=== PATIENT | female | born 1960 | race Caucasian/White ===

== ENCOUNTER 2020-12-31 17:50 | Observation (INO) ==
[2020-12-31 19:57] LABS: BASOPHILS # (AUTO) 0.1 X10^3/uL (0.0-0.1); BASOPHILS % (AUTO) 0.8 % (0.2-1.0); EOSINOPHILS # (AUTO) 0.2 x10^3/uL (0.0-0.2); EOSINOPHILS % (AUTO) 1.2 % (0.9-2.9); HEMATOCRIT 38.3 % (36.0-47.0); HEMOGLOBIN 12.8 g/dL (12.0-16.0); LYMPHOCYTES # (AUTO) 2.9 X10^3/uL (1.3-2.9); LYMPHOCYTES % (AUTO) 19.3 % (21.0-51.0); MEAN CORPUSCULAR HEMOGLOBIN 28.2 pg (27.0-34.0); MEAN CORPUSCULAR HGB CONC 33.3 g/dL (33.0-35.0); MEAN CORPUSCULAR VOLUME 84.7 fL (80.0-100.0); MEAN PLATELET VOLUME 8.3 fL (7.4-11.0); MONOCYTES # (AUTO) 1.2 x10^3/uL (0.3-0.8); NEUTROPHILS # (AUTO) 10.8 x10^3/uL (2.2-4.8); NEUTROPHILS % (AUTO) 70.7 % (42.0-75.0); PLATELET COUNT 366 X10^3/uL (150.0-450.0); RED BLOOD COUNT 4.52 X10^6/uL (3.5-5.4); RED CELL DISTRIBUTION WIDTH 13.8 % (11.6-16.5); WHITE BLOOD COUNT 15.2 X10^3/uL (3.6-10.0)
[2020-12-31 20:02] LABS: BILIRUBIN,URINE NEGATIVE (NEGATIVE); BLOOD/HEMOGLOBIN,URINE 2+ (NEGATIVE); GLUCOSE, URINE NEGATIVE (NEGATIVE); KETONES,URINE NEGATIVE (NEGATIVE); LEUKOCYTE ESTERASE ,URINE NEGATIVE (NEGATIVE); NITRITES,URINE NEGATIVE (NEGATIVE); PROTEIN,URINE NEGATIVE (NEGATIVE); UROBILINOGEN,URINE NORMAL (NORMAL)
[2020-12-31 20:05] LABS: LIPASE 115 Units/L (73-393)
[2020-12-31 20:07] LABS: AMYLASE 79 Units/L (25-115)
[2020-12-31 20:10] LABS: AMORPHOUS SEDIMENT,UR TRACE /HPF (NEGATIVE); APPEARANCE,URINE CLEAR (CLEAR); BACTERIA,URINE TRACE /HPF (NEGATIVE); COLOR,URINE YELLOW (YELLOW); SQUAMOUS EPITHELIAL CELL,UR RARE /HPF (NEGATIVE)
[2020-12-31 20:21] LABS: ALANINE AMINOTRANSFERASE 35 Units/L (12-78); ALKALINE PHOSPHATASE 66 Units/L (46-116); ASPARTATE AMINO TRANSFERASE 30 Units/L (15-37); BLOOD UREA NITROGEN 0 mg/dL (7-18); CALCIUM 9.5 mg/dL (8.5-10.1); CARBON DIOXIDE 28.3 mmol/L (21-32); CHLORIDE 105 mmol/L (98-107); CKMB % 0.9 % (<4); CREATINE KINASE 110 Units/L (26-192); CREATINE KINASE MB < 1.0 ng/mL (0-4.0); CREATININE 0.92 mg/dL (0.55-1.02); SODIUM 142 mmol/L (136-145); TROPONIN I < 0.02 ng/mL (0-1.5); eGFR NON BLACK RACES > 60 (>60)
--- NOTE | 2020-12-31 20:24 | DR.GENAD ---
HPI Time Seen Time Seen by Provider: 12/31/20 19:09 PCP Primary Care Physician: BULMARO Complaint/Symptoms Chief Complaint:: PT C/O VOMITING X 1 WEEK INTERMITTENTLY. PT ALSO C/O HEADACHE DESCRIBED A BAND LIKE PRESSURE AROUND HEAD. PT STATES THAT EARLIER THIS AFTERNOON TEMP WAS 102.8 COVID-19 Coronavirus risk:travel/contact w/high risk person: No Source History Provided: Patient Mode of Arrival Mode of Arrival: Ambulatory Timing Onset of Chief Complaint: 12/31/20 PMH PMH Past Medical History: Yes Past Medical History: GERD Past Surgical History: Yes Surgical History: , Cholecystectomy, Tonsillectomy and Lithotripsy Past Surgical History Comment: LAP BAND Family History History of Family Medical Conditions: Yes Family Medical History: Hypertension Social History Does patient currently use any type of tobacco product: No Have you used tobacco products in the last 12 months: No Type of Tobacco Use: None Does any household member use tobacco: No Alcohol Use: None Do you use any recreational Drugs:: No Lives With: Family Lives Where: Home Travel Risk Coronavirus risk:travel/contact w/high risk person: No Infectious screening In the last 2 months have you had wt loss of >10#?: NO Have you had fever, night sweats or hemotysis?: No Have you traveled outside the country in the last 6 months?: No Isolation: Standard PE Vital Signs Vitals: Temperature 100.0 F Pulse Rate 82 Respiratory Rate 22 Blood Pressure 172/70 O2 Sat by Pulse Oximetry 95 General Limitations: No Limitations General Appearance: Alert and In No Apparent Distress Head Head Exam: Normal Inspection, Atraumatic and Normocephalic Eyes Eye exam: Normal Appearance and EOMI ENT ENT Exam: Normal Exam Neck Neck Exam: Normal Inspection and Trachea Midline Chest Chest Inspection: Normal Inspection and Symmetric Chest Wall Rise Respiratory Respiratory Exam: Normal Lung Sounds Bilat Respiratory Exam: Bilateral: Clear to Auscultation Cardiovascular Cardiovascular Exam: Regular Rate, Normal Rhythm and Normal Heart Sounds Abdominal Exam Abdominal Exam: Normal Inspection, Normal Bowel Sounds, Soft and Tenderness Abdominal Tenderness: Epigastrium Extremities Extremities Exam: Normal Inspection Neurologic Neurological Exam: Alert and Oriented X3 Psychiatric Psychiatric Exam: Normal Affect and Normal Mood Skin Skin Exam: Warm, Dry and Intact COURSE Treatment Treatment: unremarkable ROR Labs Reviewed Laboratory Results Reviewed?: Yes Result Diagrams: 12/31/20 19:44 12/31/20 19:36 Laboratory: WBC 15.2 X10^3/uL (3.6-10.0) H 12/31/20 19:44 RBC 4.52 X10^6/uL (3.5-5.4) 12/31/20 19:44 Hgb 12.8 g/dL (12.0-16.0) 12/31/20 19:44 Hct 38.3 % (36.0-47.0) 12/31/20 19:44 MCV 84.7 fL (80.0-100.0) 12/31/20 19:44 MCH 28.2 pg (27.0-34.0) 12/31/20 19:44 MCHC 33.3 g/dL (33.0-35.0) 12/31/20 19:44 RDW 13.8 % (11.6-16.5) 12/31/20 19:44 Plt Count 366 X10^3/uL (150.0-450.0) 12/31/20 19:44 MPV 8.3 fL (7.4-11.0) 12/31/20 19:44 Neut % (Auto) 70.7 % (42.0-75.0) 12/31/20 19:44 Lymph % (Auto) 19.3 % (21.0-51.0) L 12/31/20 19:44 [place] % (Auto) 8.0 % (0.0-13.0) 12/31/20 19:44 Eos % (Auto) 1.2 % (0.9-2.9) 12/31/20 19:44 Baso % (Auto) 0.8 % (0.2-1.0) 12/31/20 19:44 Neut # (Auto) 10.8 x10^3/uL (2.2-4.8) H 12/31/20 19:44 Lymph # (Auto) 2.9 X10^3/uL (1.3-2.9) 12/31/20 19:44 [place] # (Auto) 1.2 x10^3/uL (0.3-0.8) H 12/31/20 19:44 Eos # (Auto) 0.2 x10^3/uL (0.0-0.2) 12/31/20 19:44 Baso # (Auto) 0.1 X10^3/uL (0.0-0.1) 12/31/20 19:44 Absolute Nucleated RBC 0.0 /100WBC 12/31/20 19:44 Sodium 142 mmol/L (136-145) 12/31/20 19:36 Corrected Sodium TNP 12/31/20 19:36 Potassium 3.8 mmol/L (3.5-5.1) 12/31/20 19:36 Chloride 105 mmol/L (98-107) 12/31/20 19:36 Carbon Dioxide 28.3 mmol/L (21-32) 12/31/20 19:36 BUN 0 mg/dL (7-18) L 12/31/20 19:36 Creatinine 0.92 mg/dL (0.55-1.02) 12/31/20 19:36 Est GFR (MDRD) Af Amer > 60 (>60) 12/31/20 19:36 Est GFR (MDRD) Non-Af > 60 (>60) 12/31/20 19:36 Glucose 93 mg/dL (65-99) 12/31/20 19:36 Calcium 9.5 mg/dL (8.5-10.1) 12/31/20 19:36 Corrected Calcium TNP 12/31/20 19:36 Total Bilirubin 0.60 mg/dL (0.2-1.0) 12/31/20 19:36 AST 30 Units/L (15-37) 12/31/20 19:36 ALT 35 Units/L (12-78) 12/31/20 19:36 Alkaline Phosphatase 66 Units/L (46-116) 12/31/20 19:36 Creatine Kinase 110 Units/L (26-192) 12/31/20 19:36 CK-MB (CK-2) < 1.0 ng/mL (0-4.0) 12/31/20 19:36 CK/CKMB % Calc 0.9 % (<4) 12/31/20 19:36 Troponin I < 0.02 ng/mL (0-1.5) 12/31/20 19:36 Total Protein 8.0 g/dL (6.4-8.2) 12/31/20 19:36 Albumin 3.6 g/dL (3.4-5.0) 12/31/20 19:36 Globulin 4.4 g/dL (2.5-4.5) 12/31/20 19:36 Albumin/Globulin Ratio 0.8 Ratio (1.1-2.1) L 12/31/20 19:36 Amylase 79 Units/L (25-115) 12/31/20 19:36 Lipase 115 Units/L (73-393) 12/31/20 19:36 Specimen Type Clean catch urine 12/31/20 19:30 Urine Color Yellow (YELLOW) 12/31/20 19:30 Urine Appearance Clear (CLEAR) 12/31/20 19:30 Urine pH 6.0 (5.0 - 8.0) 12/31/20 19:30 Ur Specific [place] 1.015 (1.000-1.030) 12/31/20 19:30 Urine Protein Negative (NEGATIVE) 12/31/20 19:30 Urine Glucose (UA) Negative (NEGATIVE) 12/31/20 19:30 Urine Ketones Negative (NEGATIVE) 12/31/20 19:30 Urine Occult Blood 2+ (NEGATIVE) 12/31/20 19:30 Urine Nitrite Negative (NEGATIVE) 12/31/20 19:30 Urine Bilirubin Negative (NEGATIVE) 12/31/20 19:30 Urine Urobilinogen Normal (NORMAL) 12/31/20 19:30 Ur Leukocyte Esterase Negative (NEGATIVE) 12/31/20 19:30 Urine RBC 3-5 /HPF (0-3) A 12/31/20 19:30 Urine WBC 0-2 /HPF (0-5) 12/31/20 19:30 Ur Squamous Epith Cells Rare /HPF (NEGATIVE) 12/31/20 19:30 Amorphous Sediment Trace /HPF (NEGATIVE) 12/31/20 19:30 Urine Bacteria Trace /HPF (NEGATIVE) 12/31/20 19:30 Ur Culture Indicated? No/not indicated 12/31/20 19:30 SARS CoV-2 RNA Rapid JANETTE Negative (NEGATIVE) 12/31/20 18:38 Opioid Opioid Risk Tool Age ([place] box if 16-45): No History of Preadolescent Sexual Abuse: No Total: 0 Total Score Risk Category: Low Risk Copyright: Wilhelm predicting aberrant behaviors Diagnosis Discharge Problem: Pneumonia Qualifiers: Pneumonia type: due to unspecified organism Laterality: right Lung location: middle lobe of lung Qualified Code(s): J18.9 - Pneumonia, unspecified organism
[2020-12-31 20:28] LABS: ALBUMIN 3.6 g/dL (3.4-5.0)
[2020-12-31] MEDS ORDERED: TUSSIONEX PENNKINETIC SUSP PO PRN (22:11)
[2020-12-31] MEDS ORDERED: NS 1/2 1000 ML IV 1,000 ML IV ONE (22:34)
[2020-12-31] MEDS ORDERED: LEVAQUIN PREMIX IV 750 MG 750 MG/150 ML BAG IV ONE (22:34)
[2020-12-31] MEDS: NS 1/2 1000 ML IV 1,000 ML IV SCH (22:43)
[2020-12-31] MEDS ORDERED: TYLENOL 325 MG TAB PO ONE (22:44)
[2020-12-31] MEDS: TYLENOL 325 MG TAB PO PRN (22:47)
[2020-12-31] MEDS ORDERED: SALINE 3% 15 ML NEB TX ONE (22:49)
[2020-12-31] MEDS ORDERED: LEVAQUIN PREMIX IV 750 MG 750 MG/150 ML BAG IV SCH (23:00)
--- NOTE | 2020-12-31 23:28 | RAD ---
PROCEDURE: Chest X-ray 1 View .HISTORY: PT C/O VOMITING X 1 WEEK INTERMITTENTLY. PT ALSO C/O HEADACHE DESCRIBED A BAND LIKE PRESSURE AROUND HEAD. PT STATES THAT EARLIER THIS AFTERNOON TEMP WAS 102.8 .TECHNIQUE: AP view .COMPARISON: None .TECHNICAL QUALITY: Satisfactory .FINDINGS:Normal size heart .Mediastinum and hilar regions show no masses or lymphadenopathy .Normal central vascularity .No pulmonary consolidation, masses, pleural fluid, or pneumothorax .No acute bony abnormality .IMPRESSION:No active cardiopulmonary disease .Electronically signed by: Daryn Chandra (Dec 31, 2020 23:26:45)
[2021-01-01] MEDS ORDERED: SALINE 3% 15 ML NEB TX NEB ONE (00:09)
[2021-01-01 00:42] VITALS: BMI 36.1
--- NOTE | 2021-01-01 06:16 | RAD ---
HISTORY: [Cough]. [Dyspnea].Single portable of the chest.Comparison: Chest radiograph dated January 01, 2020.Findings:The trachea is midline. The cardiac silhouette is borderline enlarged. There are increased [perihilar] interstitial opacities seen, suggesting [central bronchitis]. The lungs [are otherwise clear without focal infiltrate or effusion]. The bony thorax [is unremarkable].IMPRESSION:Radiographic findings suggesting a bronchitis/bronchiolitis.No lobar pneumonia or pleural effusion seen.Electronically signed by: SHANIQUE MATOS III (Jan 01, 2021 06:14:21)
[2021-01-01 06:58] LABS: BASOPHILS # (AUTO) 0.1 X10^3/uL (0.0-0.1); BASOPHILS % (AUTO) 0.8 % (0.2-1.0); EOSINOPHILS # (AUTO) 0.3 x10^3/uL (0.0-0.2); EOSINOPHILS % (AUTO) 3.4 % (0.9-2.9); HEMATOCRIT 35.9 % (36.0-47.0); HEMOGLOBIN 11.9 g/dL (12.0-16.0); LYMPHOCYTES # (AUTO) 1.8 X10^3/uL (1.3-2.9); MEAN CORPUSCULAR HEMOGLOBIN 28.3 pg (27.0-34.0); MEAN CORPUSCULAR HGB CONC 33.3 g/dL (33.0-35.0); MEAN CORPUSCULAR VOLUME 85.1 fL (80.0-100.0); MEAN PLATELET VOLUME 8.5 fL (7.4-11.0); MONOCYTES # (AUTO) 0.9 x10^3/uL (0.3-0.8); MONOCYTES % (AUTO) 9.5 % (0.0-13.0); NEUTROPHILS % (AUTO) 66.3 % (42.0-75.0); PLATELET COUNT 317 X10^3/uL (150.0-450.0); RED BLOOD COUNT 4.22 X10^6/uL (3.5-5.4); RED CELL DISTRIBUTION WIDTH 14.1 % (11.6-16.5)
[2021-01-01 07:16] LABS: ALANINE AMINOTRANSFERASE 33 Units/L (12-78); ALBUMIN 3.1 g/dL (3.4-5.0); ALKALINE PHOSPHATASE 56 Units/L (46-116); ASPARTATE AMINO TRANSFERASE 25 Units/L (15-37); BLOOD UREA NITROGEN 8 mg/dL (7-18); CALCIUM 8.8 mg/dL (8.5-10.1); CARBON DIOXIDE 28.6 mmol/L (21-32); CHLORIDE 107 mmol/L (98-107); COR CA(FOR HYPOALB) 9.5 mg/dL (8.5-10.1); CREATININE 0.94 mg/dL (0.55-1.02); SODIUM 144 mmol/L (136-145); eGFR NON BLACK RACES > 60 (>60)
[2021-01-01] MEDS: DUONEB 0.5 MG/3 MG (3 mL) NEB SCH ×4 (09:28→20:30)
[2021-01-01] MEDS: ROBITUSSIN DM PO SCH ×4 (09:41→21:05)
[2021-01-01] MEDS ORDERED: TORADOL 30 MG VIAL IVP PRN (09:47)
[2021-01-01] MEDS: TYLENOL 325 MG TAB PO PRN ×2 (09:49→21:04)
[2021-01-01] MEDS ORDERED: NS 1/2 1000 ML IV 1,000 ML IV ONE (10:03)
[2021-01-01] MEDS: NS 1/2 1000 ML IV 1,000 ML IV SCH (12:57)
--- NOTE | 2021-01-01 19:31 | DR.H&P ---
H&P - History & Physical for Day of: H&P Date: 12/31/20 - Chief Complaint Chief Complaint: COUGH, SOB, HEADACHE, NAUSEA/VOMITING - History of Present Illness History of Present Illness: IS A 60 YEAR OLD WHITE FEMALE WHO PRESENTED TO THE ED WITH REPORTS OF NON-PRODUCTIVE COUGH, SHORTNESS OF BREAHT, HEADACHE, AND VOMITING. PATIENT REPORTS A HISTORY OF ACID REFLUX AND LAP BAND AND SAYS THAT INTERMITTENT VOMITING IS NORMAL FOR HER. SHE ALSO REPORTS THAT SHE HAD A TEMPERATURE OF 102.8 TODAY. HEADACHE IS DESCRIBED PRESSURE, BAND-LIKE, AND IS LOCATED ALL AROUND THE HEAD, MORESO IN THE FRONTAL SINUS AREA. PAIN WAS RATED A 6/10 IN THE ED. HER SYMPTOMS STARTED ABOUT 1 WEEK PRIOR TO ARRIVAL. HER PMH INCLUDES: GERD, , CHOLECYSTECTMY, LAP BAND, TONSILLECTOMY, AND LITHOTRIPSY. ON ARRIVAL TO THE ED, VITALS WERE 100.0-82-22-95%-172/70. LABS WERE OBTAINED. WBC 15.2, OTHERWISE, UNREMARKABLE. CARDIAC ENZYMES WIHTIN NORMAL LIMITS. COVID-19 NEGATIVE. URINALYSIS IS UNREMARKABLE. BLOOD CULTURES WERE SET UP. WE OBTAINED A CHEST XRAY. IT REVEALED: Radiographic findings suggesting a bronchitis/bronchiolitis. No lobar pneumonia or pleural effusion seen. EKG REVEALED: SINUS RHYTHM WITH HR 64. WHILE IN THE ER, SHE WAS STARTED ON LEVAQUIN 750MG IV X 1. SHE WAS ADMITTED TO THE HOSPITAL FOR FURTHER EVALUATION AND TREATMENT OF ACUTE BRONCHITIS AND ACUTE SINUSITIS. SHE WAS STARTED ON 1/2NS AT 75 ML/HR, LEVAQUIN 750MG IV DAILY, DUONEBS QID, TUSSIONEX 5ML PO Q12H PRN, ROBITUSSIN DM 10ML PO QID, TORADOL 30MG IV Q6H PRN, ZYRTEC 10MG PO HS, FLONASE 2 SPRAYS TO EACH NOSTRIL HS, AND LOVENOX 40MG SC DAILY. OTHERWISE, WE PLAN TO FOLLOW UP WITH AM LABS AND CHEST XRAY AND CONTINUE TO MONITOR. TIME SPENT ON CLINICAL ASSESSMENT, REVIEWING LABS AND IMAGING, DECISION MAKING, AND DOCUMENTATION WAS GREATER THAN 75 MINUTES. - Past Medical History Past Medical History: GERD - Past Surgical History Surgical History: , Cholecystectomy, Tonsillectomy, Weight Loss Surgery, Lithotripsy - Family History Family Medical History: Hypertension - Social History Does patient currently use any type of tobacco product: No Have you used tobacco products in the last 12 months: No Type of Tobacco Use: None Does any household member use tobacco: No Alcohol Use: None Drug Use: None - Medications Home Medications: No Known Drug Allergies Allergy (Verified 12/31/20 18:21) CONTINUE taking the following medications cetirizine [Zyrtec] 10 mg PO DAILY 01/01/21 [History] diphenhydramine HCl [Benadryl] 25 mg PO HS 01/01/21 [History] - Review of Systems Constitutional: Fever Eyes: No Symptoms Reported ENT: Nose Congestion Respiratory: See HPI, Cough, Shortness of Breath Cardiovascular: No Symptoms Reported Gastrointestinal: No Symptoms Reported Genitourinary: No Symptoms Reported Musculoskeletal: No Symptoms Reported Skin: No Symptoms Reported Neurological: See HPI, Other (HEADACHE ) - Physical Exam Vital Signs: Temperature 98.5 F Pulse Rate [Apical] 88 Pulse Rate 85 Respiratory Rate 18 Blood Pressure [Right Arm] 111/57 Blood Pressure 172/70 O2 Sat by Pulse Oximetry 98 Oriented: Normal Eyes: Normal Ear: Normal Nose: Normal Throat: Normal Respiratory: Diminished Throughout Cardiovascular: Normal : Normal Auscultation: Bowel Sounds: Normal Palpation: Normal Tenderness: Normal Skin: Normal Musculoskeletal: Normal Psychiatric: Normal Mood Description: Calm Affect: Normal Speech Pattern: Clear - Assessment/Plan (1) Acute bronchitis Qualifiers: Bronchitis organism: unspecified organism Qualified Code(s): J20.9 - Acute bronchitis, unspecified Status: Acute Plan: ADMIT, 1/2NS AT 75 ML/HR, LEVAQUIN 750MG IV DAILY, DUONEBS QID, TUSSIONEX 5ML PO Q12H PRN, ROBITUSSIN DM 10ML PO QID, TORADOL 30MG IV Q6H PRN, ZYRTEC 10MG PO HS, FLONASE 2 SPRAYS TO EACH NOSTRIL HS, AND LOVENOX 40MG SC DAILY. (2) Acute sinusitis Qualifiers: Sinusitis location: frontal Recurrence: not specified as recurrent Qualified Code(s): J01.10 - Acute frontal sinusitis, unspecified Status: Acute (3) Fever Qualifiers: Fever type: unspecified Qualified Code(s): R50.9 - Fever, unspecified Status: Acute (4) Intractable headache Qualifiers: Headache type: unspecified Headache chronicity pattern: acute headache Qualified Code(s): R51.9 - Headache, unspecified Status: Acute (5) Nausea and vomiting Qualifiers: Vomiting type: unspecified Vomiting Intractability: intractable Qualified Code(s): R11.2 - Nausea with vomiting, unspecified Status: Acute - Allergies Allergies/Adverse Reactions: Allergies Allergy/AdvReac Type Severity Reaction Status Date / Time No Known Drug Allergies Allergy Verified 12/31/20 18:21
[2021-01-01] MEDS ORDERED: FLONASE NASAL SPRAY ENOSTRIL SCH (21:00)
[2021-01-01] MEDS ORDERED: ZyrTEC TAB 10 MG PO SCH (21:00)
[2021-01-01] MEDS ORDERED: LEVAQUIN PREMIX IV 750 MG 750 MG/150 ML BAG IV SCH (21:00)
[2021-01-02] MEDS ORDERED: NS 1/2 1000 ML IV 1,000 ML IV ONE (03:43)
[2021-01-02 06:32] LABS: BASOPHILS # (AUTO) 0.1 X10^3/uL (0.0-0.1); BASOPHILS % (AUTO) 1.1 % (0.2-1.0); EOSINOPHILS # (AUTO) 0.2 x10^3/uL (0.0-0.2); EOSINOPHILS % (AUTO) 3.1 % (0.9-2.9); HEMATOCRIT 34.2 % (36.0-47.0); HEMOGLOBIN 11.5 g/dL (12.0-16.0); LYMPHOCYTES # (AUTO) 1.8 X10^3/uL (1.3-2.9); LYMPHOCYTES % (AUTO) 23.9 % (21.0-51.0); MEAN CORPUSCULAR HEMOGLOBIN 28.5 pg (27.0-34.0); MEAN CORPUSCULAR HGB CONC 33.5 g/dL (33.0-35.0); MEAN CORPUSCULAR VOLUME 85.1 fL (80.0-100.0); MEAN PLATELET VOLUME 8.5 fL (7.4-11.0); MONOCYTES # (AUTO) 0.9 x10^3/uL (0.3-0.8); MONOCYTES % (AUTO) 11.6 % (0.0-13.0); NEUTROPHILS # (AUTO) 4.5 x10^3/uL (2.2-4.8); NEUTROPHILS % (AUTO) 60.3 % (42.0-75.0); PLATELET COUNT 314 X10^3/uL (150.0-450.0); RED BLOOD COUNT 4.02 X10^6/uL (3.5-5.4); RED CELL DISTRIBUTION WIDTH 14.1 % (11.6-16.5); WHITE BLOOD COUNT 7.4 X10^3/uL (3.6-10.0)
[2021-01-02 06:59] LABS: ALANINE AMINOTRANSFERASE 32 Units/L (12-78); ALKALINE PHOSPHATASE 60 Units/L (46-116); ASPARTATE AMINO TRANSFERASE 25 Units/L (15-37); BLOOD UREA NITROGEN 8 mg/dL (7-18); CALCIUM 9.1 mg/dL (8.5-10.1); CARBON DIOXIDE 26.5 mmol/L (21-32); CHLORIDE 108 mmol/L (98-107); COR CA(FOR HYPOALB) 9.9 mg/dL (8.5-10.1); CREATININE 0.94 mg/dL (0.55-1.02); SODIUM 144 mmol/L (136-145); TOTAL PROTEIN 6.8 g/dL (6.4-8.2); eGFR NON BLACK RACES > 60 (>60)
--- NOTE | 2021-01-02 07:03 | RAD ---
HISTORY: [Cough]. [Dyspnea].Single portable of the chest.Comparison: Chest radiograph dated January 01, 2020.Findings:The trachea is midline. The cardiac silhouette is borderline enlarged. There are worsening increased [perihilar] interstitial opacities seen, suggesting [central bronchitis]. The lungs [are otherwise clear without focal infiltrate or effusion]. The bony thorax [is unremarkable].IMPRESSION:Radiographic findings suggesting a slightly worsening bronchitis/bronchiolitis.No lobar pneumonia or pleural effusion seen.Electronically signed by: SHANIQUE MATOS III (Jan 02, 2021 07:02:17)
[2021-01-02] MEDS: NS 1/2 1000 ML IV 1,000 ML IV SCH (07:06)
[2021-01-02 08:09] VITALS: BP 150/65
[2021-01-02] MEDS ORDERED: LOVENOX INJ 40 MG SYR SC SCH (09:00)
[2021-01-02] MEDS: DUONEB 0.5 MG/3 MG (3 mL) NEB SCH (09:16)
[2021-01-02] MEDS: ROBITUSSIN DM PO SCH (09:49)
== END 2021-01-02 11:10 | disposition home or self-care (01) ==
LOC: MED/SURG 18:10 → ER 18:10 → MED/SURG 23:32
PROVIDERS: ADMIT Internal Medicine; ATTEND Internal Medicine
DX: R11.2 Nausea with vomiting, unspecified; K21.9 Gastro-esophageal reflux disease without esophagitis; R06.02 Shortness of breath; R51.9 Headache, unspecified; J01.10 Acute frontal sinusitis, unspecified; Z20.822 Contact with and (suspected) exposure to COVID-19; J20.8 Acute bronchitis due to other specified organisms